=== PATIENT | male | born 1980 | race Caucasian/White ===

== ENCOUNTER → 2016-10-13 | Outpatient (CLI) | payer MEDICAID | LOC: OD 10:10 | PROVIDERS: ATTEND Physician Assistant | DX: M25.511 Pain in right shoulder (principal) ==

== ENCOUNTER → 2019-06-14 | Outpatient (CLI) | payer MEDICAID ==
--- NOTE | 2019-06-14 11:53 | RADIOLOGY REPORT (SQ) ---
EXAM DESCRIPTION: FINGER RIGHT COMPLETED DATE/TIME: 06/14/2019 11:27 am REASON FOR STUDY: UNSP OPEN WOUND OF UNSP FINGER W/O DAMAGE TO NAIL, INIT (S61.209A) S61.A UNSP OPEN WOUND OF UNSP FINGER W/O DAMAGE TO NAIL, COMPARISON: None. NUMBER OF VIEWS: Three views. TECHNIQUE: AP, lateral, and oblique images acquired of the right second finger. LIMITATIONS: None. FINDINGS: MINERALIZATION: Normal. BONES: No acute fracture or dislocation. No worrisome bone lesions. SOFT TISSUES: Amputation injury of the soft tissues. OTHER: No other significant finding. IMPRESSION: Amputation injury involving the soft tissues of the 2nd digit. No underlying bony abnor mality. COMMENT: SITE OF TRAUMA/COMPLAINT MARKED/STAMP COMPLETED: NOT APPLICABLE. TECHNICAL DOCUMENTATION: JOB ID: [id number] [employer]- All Rights Reserved Reading location - IP/workstation name: [email or web address]
== END ==
LOC: RAD 11:09
PROVIDERS: ATTEND Nurse Practitioner Family
DX: S61.209A Unspecified open wound of unspecified finger without damage to nail, initial encounter (principal); X58.XXXA Exposure to other specified factors, initial encounter

== ENCOUNTER 2019-11-05 18:29 | Emergency (ER) | payer MEDICAID ==
[2019-11-05] MEDS ORDERED: ASPIRIN 81 MG TABLET, CHEWABLE PO ONE (19:08)
--- NOTE | 2019-11-05 19:08 | ER Document Report ---
ED Medical Screen (RME) - General Stated Complaint: ELEVATED HEART RATE Time Seen by Provider: 11/05/19 19:04 Primary Care Provider: JJ PATLE PA-C [Primary Care Provider] - Follow up as needed Notes: Patient is a 39-year-old male who presents to the emergency department with a chief complaint of rapid heart rate. He states around 545 this evening, he stood up, got dizzy, and felt his heart racing. His told him that his heart rate was in the 140s to 150s. He also took his blood pressure at home and it was also elevated. He also admitted to some chest tightness. Patient does admit to taking Sudafed. Patient states that his parents have a history of a heart attack in their 40s and 50s. Exam: Tachycardia noted on twelve-lead EKG. I have greeted and performed a rapid initial assessment of this patient. A comprehensive ED assessment and evaluation of the patient, analysis of test results and completion of medical decision making process will be conducted by an additional ED providers. TRAVEL OUTSIDE OF THE [place] IN LAST 30 DAYS: No - Related Data Allergies/Adverse Reactions: No Known Allergies Allergy (Unverified 01/17/16 17:31) Physical Exam - Vital signs Vitals: Temp Pulse Resp BP Pulse Ox 98.8 F 128 H 18 151/104 H 97 11/05/19 18:44 11/05/19 18:44 11/05/19 18:44 11/05/19 18:44 11/05/19 18:44 Course - Vital Signs Vital signs: Temp Pulse Resp BP Pulse Ox 98.8 F 128 H 18 151/104 H 97 11/05/19 18:44 11/05/19 18:44 11/05/19 18:44 11/05/19 18:44 11/05/19 18:44 Doctor's Discharge - Discharge Referrals: JJ PATEL PA-C [Primary Care Provider] - Follow up as needed
[2019-11-05] MEDS ORDERED: METOPROLOL TARTRATE PF/INJ 5 MG/5 ML SDV IV ONE (19:23)
--- NOTE | 2019-11-05 19:27 | RADIOLOGY REPORT (SQ) ---
EXAM DESCRIPTION: CHEST SINGLE VIEW IMAGES COMPLETED DATE/TIME: 11/05/2019 7:15 pm REASON FOR STUDY: chest tightness COMPARISON: None. EXAM PARAMETERS: NUMBER OF VIEWS: One view. TECHNIQUE: Single frontal radiographic view of the chest acquired. RADIATION DOSE: NA LIMITATIONS: None. FINDINGS: LUNGS AND PLEURA: No opacities, masses or pneumothorax. No pleural effusion. MEDIASTINUM AND HILAR STRUCTURES: No masses. Contour normal. HEART AND VASCULAR STRUCTURES: Heart normal in size. Normal vasculature. BONES: No acute findings. HARDWARE: None in the chest. OTHER: No other significant finding. IMPRESSION: 1. NO ACUTE RADIOGRAPHIC FINDING IN THE CHEST. TECHNICAL DOCUMENTATION: JOB ID: [id number] 2010 [employer]- All Rights Reserved Reading location - IP/workstation name: [email or web address]
[2019-11-05] MEDS ORDERED: NORMAL SALINE 1000 ML 1,000 ML IV ONE (19:28)
--- NOTE | 2019-11-05 19:28 | ER Document Report ---
ED Cardiac - General Chief Complaint: Irregular Pulse Stated Complaint: ELEVATED HEART RATE Time Seen by Provider: 11/05/19 19:04 Primary Care Provider: JJ PATEL PA-C [Primary Care Provider] - Follow up as needed Notes: 39-year-old male who presents to the emergency department with a chief complaint of rapid heart rate. He states around 545 this evening, he stood up, got dizzy, and felt his heart racing. His told him that his heart rate was in the 140s to 150s. He also took his blood pressure at home and it was also elevated. He also admitted to some chest tightness. Patient does admit to taking Sudafed. Patient states that his parents have a history of a heart attack in their 40s and 50s. TRAVEL OUTSIDE OF THE [place] IN LAST 30 DAYS: No - Related Data Allergies/Adverse Reactions: No Known Allergies Allergy (Unverified 01/17/16 17:31) Home Medications: Claratin D, Aspirin Past Medical History - Social History Smoking Status: Current Every Day Smoker Family History: CAD Patient has suicidal ideation: No Patient has homicidal ideation: No Review of Systems - Review of Systems Constitutional: denies: Chills, Fever EENT: Nose congestion. denies: Throat pain Cardiovascular: Palpitations, Heart racing, Dyspnea. denies: Chest pain, Edema Respiratory: Short of breath. denies: Cough, Hemoptysis Gastrointestinal: Nausea. denies: Abdominal pain, Vomiting Genitourinary: denies: Dysuria, Flank pain Musculoskeletal: No symptoms reported Neurological/Psychological: denies: Headaches -: Yes All other systems reviewed and negative Physical Exam - Vital signs Vitals: Temp Pulse Resp BP Pulse Ox 98.8 F 128 H 18 151/104 H 97 11/05/19 18:44 11/05/19 18:44 11/05/19 18:44 11/05/19 18:44 11/05/19 18:44 - Notes Notes: GENERAL_APPEARANCE: well_nourished, alert, cooperative VITALS: reviewed, see vital signs table. HEAD: no_swelling\tenderness on the head. EYES: PERRL, EOMI, conjunctiva_clear. NOSE: no_nasal_discharge. MOUTH: (-)decreased moisture. THROAT: no_tonsilar_inflammation, no_airway_obstruction. no_lymphadenopathy NECK: supple, no_neck_tenderness, (-)thyromegaly. BACK: no_back_tenderness. CHEST_WALL: no_chest_tenderness. LUNGS: no_wheezing, no_rales, no_rhonchi, (-)accessory muscle use, good air exchange bilateral. HEART: Tachycardic_rate, normal_rhythm, normal_S1, normal_S2, (-)S3, (-)S4, no_murmur, no_rub. ABDOMEN: normal_BS, soft, no_abd_tenderness, (-)guarding, (-)rebound, no_organomegaly, no_abd_masses. EXTREMITIES: good pulses in all_extremities, no_swelling\tenderness in the extremities, no_edema. SKIN: warm, dry, good_color, no_rash. MENTAL_STATUS: speech_clear, oriented_X_3, anxious_affect, responds_appropria tely to questions. NEURO: Neg Motor or Sensory Deficits on exam, CN 2-12 intact, DTR 2+ symmetric x 4, No cerbellar signs Course - Re-evaluation Re-evalutation: 11/05/19 19:26 39-year-old male presents to the ER with an inappropriate sinus tachycardia. He had about 3 or 4 years ago. The patient likely had a triggered by the Sudafed he took for just mild cold. The patient has no high risk coronavirus symptoms. Patient's blood pressure and heart rate are up mildly we will give him a dose of low pressure and check electrolytes and fluids. 11/05/19 20:23 Heart rate is come down on its own without medications. Patient is feeling much better blood pressure is down advised him not to take anymore the Sudafed. He will likely need to have follow-up with cardiology. His family doctor can refer him he may need to wear Giovanni patch for several weeks. At this time he is doing well there is no acute emergency medical condition requiring further treatment or stabilization at this time. Blood pressure is up but I will not start him on medicine I spoke with him about diet control weight loss and try to do this through his family doc before starting him on medicines - Vital Signs Vital signs: Temp Pulse Resp BP Pulse Ox 98.8 F 128 H 20 134/96 H 98 11/05/19 18:44 11/05/19 18:44 11/05/19 19:43 11/05/19 19:43 11/05/19 19:53 - Laboratory Result Diagrams: 11/05/19 19:28 11/05/19 19:28 - Diagnostic Test Radiology reviewed: Reports reviewed Radiology results interpreted by me: 11/05/19 20:23 Chest X-Ray 11/05/19 19:06 IMPRESSION: 1. NO ACUTE RADIOGRAPHIC FINDING IN THE CHEST. - EKG Interpretation by Me EKG shows normal: Sinus rhythm Rate: Tachycardia Rhythm: NSR Discharge - Discharge Clinical Impression: Inappropriate sinus tachycardia, Palpitations Condition: Good Disposition: HOME, SELF-CARE Instructions: Palpitations (Irregular or Rapid Heartrate) ([facility]) Additional Instructions: If your primary care doctor refers you you should see Dr. Guerrero or Dr. Sargent at the heart center in [place] they are retail business development manager. Referrals: JJ PATEL PA-C [Primary Care Provider] - Follow up as needed BECKY GUERRERO MD [NO LOCAL MD] - Follow up as needed ROSELYN SARGENT MD [NO LOCAL MD] - Follow up as needed
[2019-11-05 19:39] LABS: ABSOLUTE EOSINOPHILS # (AUTO) 0.3 10^3/uL (0.0-0.6); ABSOLUTE LYMPHOCYTES (AUTO) 1.4 10^3/uL (0.5-4.7); ABSOLUTE MONOCYTES (AUTO) 0.4 10^3/uL (0.1-1.4); ABSOLUTE NEUT (AUTO) 4.9 10^3/uL (1.7-8.2); BASOPHILS % (AUTO) 0.6 % (0-2); EOSINOPHILS % (AUTO) 3.9 % (0-6); HEMATOCRIT 44.9 % (37.9-51.0); LYMPHOCYTES % (AUTO) 20.3 % (13-45); MEAN CORPUSCULAR HEMOGLOBIN 31.9 pg (27.0-33.4); MEAN CORPUSCULAR HGB CONC 35.7 g/dL (32.0-36.0); MEAN CORPUSCULAR VOLUME 89 fl (80-97); MONOCYTES % (AUTO) 5.9 % (3-13); PLATELET COUNT 184 10^3/uL (150-450); RED BLOOD COUNT 5.02 10^6/uL (4.35-5.55); RED CELL DISTRIBUTION WIDTH 13.2 % (11.5-14.0); SEGMENTED NEUTROPHILS % (AUTO) 69.3 % (42-78); TOTAL CELLS COUNTED % (AUTO) 100 %; WHITE BLOOD COUNT 7.1 10^3/uL (4.0-10.5)
[2019-11-05 19:58] LABS: ALBUMIN 4.5 g/dL (3.5-5.0); ALKALINE PHOSPHATASE 66 U/L (38-126); ANION GAP 8 (5-19); ASPARTATE AMINO TRANSFERASE 31 U/L (17-59); BILIRUBIN,TOTAL 0.5 mg/dL (0.2-1.3); BLOOD UREA NITROGEN 15 mg/dL (7-20); CALCIUM 9.8 mg/dL (8.4-10.2); CARBON DIOXIDE 30 mmol/L (22-30); CHLORIDE 100 mmol/L (98-107); CREATINE KINASE 104 U/L (55-170); GLUCOSE 94 mg/dL (75-110); POTASSIUM 4.4 mmol/L (3.6-5.0); TOTAL PROTEIN 7.5 g/dL (6.3-8.2)
[2019-11-05 20:49] VITALS: BP 130/95
--- NOTE | 2019-11-06 08:29 | EKG REPORT ---
SEVERITY:- ABNORMAL ECG - SINUS TACHYCARDIA RIGHT ATRIAL ABNORMALITY : Confirmed by: Thien Maynard 06-Nov-2019 08:28:02
== END 2019-11-05 20:48 | disposition home or self-care (01) ==
LOC: ER 18:29
DX: R00.0 Tachycardia, unspecified (principal); R00.2 Palpitations; R42 Dizziness and giddiness; R07.89 Other chest pain; R06.02 Shortness of breath; R09.81 Nasal congestion; R11.0 Nausea; F17.200 Nicotine dependence, unspecified, uncomplicated; Z79.899 Other long term (current) drug therapy; Z79.82 Long term (current) use of aspirin; Z82.49 Family history of ischemic heart disease and other diseases of the circulatory system
CPT/HCPCS: 36415; 71045; 80053; 82550; 83735; 84484; 85025; 93005; 93010; 99285